=== PATIENT | male | born 1990 | race African-American/Black ===

== ENCOUNTER 2017-07-09 14:20 | Emergency (ER) | payer BC, OTHER ==
[2017-07-09] MEDS ORDERED: Albuterol/Ipratropium 3.0-0.5 MG/3 ML Neb Soln NEB ONE (14:37)
--- NOTE | 2017-07-09 15:20 | EDM.PDOC ---
ED HPI GENERAL MEDICAL PROBLEM - General Chief Complaint: Respiratory Problem Stated Complaint: CONGESTED Time Seen by Provider: 07/09/17 15:13 Source of Information: Reports: Patient History Limitations: Reports: No Limitations - History of Present Illness INITIAL COMMENTS - FREE TEXT/NARRATIVE: History of present illness: [26 year old male presents with complaints of shortness of breath. Patient indicates that the last 2 evenings at work he has had a low-grade chemical exposure. Patient indicates there was some fracture in the line at [facility] and there was a noxious chemical that was aerosolized. Patient indicates he did wear mask both days but that the second day he was the only one working in the back so his exposure was protracted as compared to the previous day.] Review of systems: As per history of present illness and below otherwise all systems reviewed and negative. Past medical history: As per history of present illness and as reviewed below otherwise noncontributory. Surgical history: As per history of present illness and as reviewed below otherwise noncontributory. Social history: No reported history of drug or alcohol abuse. Family history: As per history of present illness and as reviewed below otherwise noncontributory. Physical exam: HEENT: Atraumatic, normocephalic, pupils reactive, negative for conjunctival pallor or scleral icterus, mucous membranes moist, throat clear, neck supple, nontender, trachea midline. Lungs: Decreased throughout with significant poor movement noted, chest nontender. Heart: S1S2, regular, negative for clicks, rubs, or JVD. Abdomen: Soft, nondistended, nontender. Negative for masses or hepatosplenomegaly. Negative for costovertebral tenderness. Pelvis: Stable nontender. Genitourinary: Deferred. Rectal: Deferred. Extremities: Atraumatic, negative for cords or calf pain. Neurovascular unremarkable. Neuro: Awake, alert, oriented. Cranial nerves II through XII unremarkable. Cerebellum unremarkable. Motor and sensory unremarkable throughout. Exam nonfocal. Diagnostics: [Two-view chest x-ray] Therapeutics: [Duo neb] Impression: [#1 Medical screening exam #2 observation status post noxious exposure] Plan: [Inhaler follow up with PCP/[facility]] Definitive disposition and diagnosis as appropriate pending reevaluation and review of above. - Related Data Allergies Allergy/AdvReac Type Severity Reaction Status Date / Time No Known Allergies Allergy Verified 07/09/17 14:24 Home Meds: Home Meds . [No Known Home Meds] 07/09/17 [History] Past Medical History - Past Health History Medical/Surgical History: Denies Medical/Surgical History Social & Family History - Family History Family Medical History: Noncontributory - Tobacco Use Smoking Status *Q: Never Smoker Second Hand Smoke Exposure: No - Caffeine Use Caffeine Use: Reports: None - Recreational Drug Use Recreational Drug Use: No ED ROS GENERAL - Review of Systems Review Of Systems: See Below (History of present illness) ED EXAM, GENERAL - Physical Exam Exam: See Below (See history of present illness) Course - Vital Signs Last Recorded V/S: Last Vital Signs Temp 36.6 C 07/09/17 14:25 Pulse 109 H 07/09/17 14:38 Resp 20 07/09/17 14:25 BP 147/99 H 07/09/17 14:25 Pulse Ox 98 07/09/17 14:25 - Orders/Labs/Meds Orders: Active Orders 24 hr Category Date Time Status RT Aerosol Therapy [RC] ASDIRECTED Care 07/09/17 14:38 Active CXR [Chest 2V] [CR] Stat Exams 07/09/17 14:53 Taken Meds: Medications Discontinued Medications Generic Name Dose Route Start Last Admin Trade Name Redyd PRN Reason Stop Dose Admin Albuterol/Ipratropium 3 ml 07/09/17 14:37 07/09/17 15:12 Duoneb 3.0-0.5 Mg/3 Ml NEB 07/09/17 14:38 3 ml ONETIME ONE Administration Departure - Departure Time of Disposition: 16:07 Disposition: Home, Self-Care 01 Condition: Good Clinical Impression: Worried well, Inhalation of noxious fumes - Discharge Information Instructions: Acute Bronchitis, [id number] Referrals: PCP,Unknown [Primary Care Provider] - Forms: ED Department Discharge Additional Instructions: The following information is given to patients seen in the emergency department who are being discharged to home. This information is to outline your options for follow-up care. We provide all patients seen in our emergency department with a follow-up referral. The need for follow-up, as well as the timing and circumstances, are variable depending upon the specifics of your emergency department visit. If you don't have a primary care physician on staff, we will provide you with a referral. We always advise you to contact your personal physician following an emergency department visit to inform them of the circumstance of the visit and for follow-up with them and/or the need for any referrals to a consulting specialist. The emergency department will also refer you to a specialist when appropriate. This referral assures that you have the opportunity for follow-up care with a specialist. All of these measure are taken in an effort to provide you with optimal care, which includes your follow-up. Under all circumstances we always encourage you to contact your private physician who remains a resource for coordinating your care. When calling for follow-up care, please make the office aware that this follow-up is from your recent emergency room visit. If for any reason you are refused follow-up, please contact the [facility] Emergency Department at and asked to speak to the emergency department charge nurse. You're being provided inhaler secondary to chronic bronchitis and now this new insult Please follow-up with occupational health as discussed in regards to the substances that you're exposed to in case you need further intervention Follow-up with PCP 1-2 days Return to ED as needed as discussed - My Orders Last 24 Hours: My Active Orders 07/09/17 14:38 RT Aerosol Therapy [RC] ASDIRECTED 07/09/17 14:53 CXR [Chest 2V] [CR] Stat - Assessment/Plan Last 24 Hours: My Active Orders 07/09/17 14:38 RT Aerosol Therapy [RC] ASDIRECTED 07/09/17 14:53 CXR [Chest 2V] [CR] Stat
--- NOTE | 2017-07-09 17:40 | CR ---
EXAM DATE: 07/09/17 PATIENT'S AGE: 26 Patient: [facility] Facility: [place], [place] Site . Site : 1990 Study: XRay Chest [id number]/[id number] 3:08:24 PM Ordering Physician: HEIKE Final Report: INDICATION: Noxious exposure TECHNIQUE: Chest 2 views. COMPARISON: None available FINDINGS: Cardiovascular and mediastinum: Heart size and vasculature are normal in caliber and appearance. Mediastinum is within normal limits. Lungs and pleural spaces: Lungs are clear. No sign of infiltrate or mass. No sign of pleural effusion. No pneumothorax. Bones and soft tissues: No significant findings. IMPRESSION: No sign of acute disease. Dictated by Rinku Tolentino MD @ 07/09/2017 3:13:26 PM Dictated by: Rinku Tolentino MD @ 07/09/2017 15:13:38 (Electronic Signature) Report Signed by Proxy. MEGHA
== END 2017-07-09 16:22 | disposition home or self-care (01) ==
LOC: MW.ED 14:20
DX: T59.91XA Toxic effect of unspecified gases, fumes and vapors, accidental (unintentional), initial encounter (principal); R06.02 Shortness of breath
CPT/HCPCS: 71020; 71020-26; 99283; 99284-25

== ENCOUNTER 2024-11-15 20:41 | Emergency (ER) | payer BC ==
[2024-11-15 21:26] LABS: BASOPHILS ABSOLUTE AUTO 0.02 K/uL (0.00-0.20); BASOPHILS PERCENT AUTO 0.4 % (0.0-1.0); EOSINOPHILS ABSOLUTE AUTO 0.16 K/uL (0.00-0.45); EOSINOPHILS PERCENT AUTO 2.9 % (0.0-6.0); HEMATOCRIT 44.8 % (42.0-52.0); HEMOGLOBIN 14.9 g/dL (14.0-18.0); IMMATURE GRAN ABSOLUTE AUTO 0.02 K/uL (0.00-0.05); IMMATURE GRAN PERCENT AUTO 0.4 % (0.0-0.4); LYMPHOCYTES ABSOLUTE AUTO 0.94 K/uL (1.00-4.80); LYMPHOCYTES PERCENT AUTO 16.8 % (24.0-44.0); MEAN CORPUSCULAR HEMOGLOBIN 30.8 pg (28.0-32.0); MEAN CORPUSCULAR HGB CONC 33.3 g/dL (32.0-36.0); MEAN CORPUSCULAR VOLUME 92.8 fL (83.0-99.0); MEAN PLATELET VOLUME 10.2 fL (9.4-12.4); MONOCYTES ABSOLUTE AUTO 0.27 K/uL (0.00-0.80); MONOCYTES PERCENT AUTO 4.8 % (0.0-8.0); NEUTROPHILS ABSOLUTE AUTO 4.18 K/uL (1.80-7.70); NEUTROPHILS PERCENT AUTO 74.7 % (41.0-71.0); PLATELET COUNT,PLT 278 K/uL (150-400); RED BLOOD CELL COUNT 4.83 M/uL (4.52-5.90); WHITE BLOOD CELL COUNT,WBC 5.59 K/uL (3.9-11.3)
[2024-11-15] MEDS: Lisinopril/Hydrochlorothiazide 10-12.5 MG Tab PO ONE (21:29)
[2024-11-15 21:56] LABS: A/G RATIO 0.9 (0.9-1.6); ALBUMIN 3.8 g/dL (3.4-5.0); BILIRUBIN TOTAL 0.5 mg/dL (0.2-1.0); CALCIUM 9.1 mg/dL (8.5-10.1); CARBON DIOXIDE,CO2 31.4 mmol/L (21.0-32.0); CREATININE 1.2 mg/dL (0.8-1.3); EST CRCL DRUG DOSING (CG) 90.41 mL/min; MAGNESIUM 1.3 mg/dL (1.8-2.4); POTASSIUM,K 3.8 mmol/L (3.5-5.1); PROTEIN TOTAL,TP 7.8 g/dL (6.4-8.2)
[2024-11-15] MEDS: Aspirin 81 MG Tab.Chew PO ONE (22:36)
[2024-11-15] MEDS ORDERED: Nitroglycerin 0.4 MG Tab.SL SL PRN (22:45)
[2024-11-15] MEDS: Magnesium Oxide 400 MG Tab PO ONE (23:15)
== END 2024-11-16 00:47 | disposition home or self-care (01) ==
LOC: MW.ED 20:41
DX: I10 Essential (primary) hypertension (principal); F43.9 Reaction to severe stress, unspecified; R79.89 Other specified abnormal findings of blood chemistry; E83.42 Hypomagnesemia; Z79.82 Long term (current) use of aspirin; Z79.51 Long term (current) use of inhaled steroids; Z79.899 Other long term (current) drug therapy
CPT/HCPCS: 36415; 71045; 80053; 83690; 83735; 83880; 84484; 85025; 93005; 99285; A9270